=== PATIENT | male | born 1970 | race Two or more races ===

== ENCOUNTER 2025-05-18 20:49 | Emergency (ER) | payer SELFPAY ==
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
[2025-05-18 21:10] VITALS: BP 169/88; PULSE 82; RESP 18; TEMP 36.7; O2SAT 95
[2025-05-18 21:12] VITALS: BMI 32.9
== END 2025-05-18 21:14 ==
PROVIDERS: Emergency Provider Emergency Medicine
DX: Z02.89 Encounter for other administrative examinations (principal); Z04.1 Encounter for examination and observation following transport accident
CPT/HCPCS: 99281